=== PATIENT | female | born 1985 | race African-American/Black ===

== ENCOUNTER 2016-08-14 22:16 | Emergency (ER) | payer SELFPAY ==
[~2016-08-14] VITALS: Ht 177.8 cm; Wt 136.1 kg
[2016-08-15] MEDS ORDERED: LORazepam 2MG/ML-1ML VIAL ONE (01:19)
[2016-08-15] MEDS ORDERED: LORazepam 2MG/ML-1ML VIAL IV ONE ×2 (01:30→04:45)
[2016-08-15 01:31] LABS: Basophils # (auto) 0.1 uL; Basophils % (auto) 0.9 % (0.0-2.0); Eosinophils # (auto) 0.1 uL; Hematocrit 41.6 % (36.0-46.0); Hemoglobin 13.4 g/dL (12.2-16.2); Lymphocytes # (auto) 3.2 uL; Lymphocytes % (auto) 39.2 % (10.0-50.0); Mean Corpuscular Hgb Conc. 32.1 g/dL (32.0-36.0); Mean Corpuscular Volume 90.4 fL (80.0-100.0); Mean Platelet Volume 9.7 fL (7.4-10.4); Monocytes # (auto) 0.4 uL; Monocytes % (auto) 5.1 % (0.0-12.0); Neutrophils # (auto) 4.4 uL; Neutrophils % (auto) 53.8 % (37.0-80.0); Platelet Count (auto) 264 10^3/uL (140-450); Red Cell Distribution Width 14.6 % (11.6-16.0); White Blood Cell 8.2 10^3/uL (4.4-10.8)
[2016-08-15 01:55] LABS: Albumin 3.6 g/dL (3.4-5.0); Anion Gap 11 (5-15); Aspartate Aminotransferase 30 U/L (15-37); BUN/Creatinine Ratio 12.8; Blood Urea Nitrogen 11 mg/dL (7-18); Calcium 8.4 mg/dL (8.5-10.1); Carbon Dioxide 22 mmol/L (21-32); Chloride 108 mmol/L (98-107); GFR African American 98 mL/min; GFR Non-African American 81 mL/min; Glucose 116 mg/dL (74-106); Potassium 3.6 mmol/L (3.5-5.1); Salicylate < 1.7 mg/dL (2.8-20.0); Sodium 141 mmol/L (136-145)
[2016-08-15 01:57] LABS: Alkaline Phosphatase 74 U/L (45-117); Bilirubin, Total 0.2 mg/dL (0.2-1.0); Total Protein 8.2 g/dL (6.4-8.2)
[2016-08-15 01:58] LABS: Acetaminophen < 2.0 ug/mL (10-30)
[2016-08-15] MEDS ORDERED: diphenhdrAMINE HCL 50 MG/1 ML VL ONE (02:02)
[2016-08-15] MEDS ORDERED: diphenhdrAMINE HCL 50 MG/1 ML VL IV ONE (02:15)
[2016-08-15] MEDS ORDERED: hydrOXYzine PAMOATE 25 MG CAP PO ONE (03:45)
[2016-08-15] MEDS ORDERED: LITHIUM CARBONATE 300 MG TAB PO ONE (03:45)
[2016-08-15] MEDS ORDERED: OXcarbazepine 300 MG TAB PO ONE (03:45)
[2016-08-15] MEDS ORDERED: VENLAFAXINE HCL 37.5MG TABLET PO ONE (03:45)
[2016-08-15] MEDS ORDERED: BENZTROPINE MESY 0.5 MG TAB PO ONE (03:45)
[2016-08-15 04:34] LABS: Urine Bilirubin Negative (Negative); Urine Color Yellow (Yellow); Urine Glucose Normal (Normal); Urine Ketone Negative (Negative); Urine Mucus FEW (None Seen); Urine Nitrite Negative (Negative); Urine RBC 4 /hpf (0 - 4); Urine Squamous Epithelial Cell FEW /hpf (<5); Urine Urobilinogen Normal (Negative); Urine pH 5.5 (5.0-8.0)
[2016-08-15 04:38] LABS: Urine Blood 1+ /uL (Negative)
[2016-08-15 08:35] VITALS: BP 125/74
== END 2016-08-15 09:15 | disposition home or self-care (01) ==
LOC: EDBD 22:16 → ER 22:21
DX: F20.9 Schizophrenia, unspecified (principal); F31.9 Bipolar disorder, unspecified; F41.9 Anxiety disorder, unspecified; I10 Essential (primary) hypertension; R41.82 Altered mental status, unspecified; R46.1 Bizarre personal appearance; R41.0 Disorientation, unspecified; R55 Syncope and collapse
CPT/HCPCS: 36415; 70450; 80053; 80320; 80329; 81001; 81025; 85025; 96374; 96375; 96376; 99285; G0434; J1200; J2060